=== PATIENT | female | born 1950 | race Caucasian/White ===

== ENCOUNTER 2017-06-26 08:34 | Outpatient (CLI) | payer MEDICARE | END 2017-06-26 08:35 | disposition home or self-care (01) | LOC: BICMAMMO 08:34 | PROVIDERS: ATTEND Family Medicine | DX: Z12.31 Encounter for screening mammogram for malignant neoplasm of breast (principal); R94.6 Abnormal results of thyroid function studies; E89.0 Postprocedural hypothyroidism; Z85.3 Personal history of malignant neoplasm of breast; Z85.850 Personal history of malignant neoplasm of thyroid | CPT/HCPCS: 76536; 77063; 77067 ==

== ENCOUNTER 2018-08-19 13:53 | Outpatient (CLI) | payer MEDICARE ==
--- NOTE | 2018-08-19 14:28 | MMO ---
Bilateral MAMMO Bilat Screen [facility]. CLINICAL HISTORY: Patient is 67 years old and is seen for screening. The patient has the following family history of breast cancer: maternal grandmother, (great grandmother). The patient has a history of thyroid cancer in 2003. The patient has a history of Cyst Aspiration in 2006, right Excisional Biopsy in 1993 - benign findings and right Excisional Biopsy in 1996 - benign findings. VIEWS: The views performed were: bilateral craniocaudal with tomosynthesis and bilateral mediolateral oblique with tomosynthesis. FILMS COMPARED: The present examination has been compared to prior imaging studies performed at [facility] on 05/04/2014, 05/10/2015, 05/20/2016 and 06/26/2017. MAMMOGRAM FINDINGS: There are scattered fibroglandular densities. There are no suspicious masses, suspicious calcifications, or new areas of architectural distortion. IMPRESSION: THERE IS NO MAMMOGRAPHIC EVIDENCE OF MALIGNANCY. A ROUTINE FOLLOW-UP MAMMOGRAM IN 1 YEAR IS RECOMMENDED. THE RESULTS OF THIS EXAM WERE SENT TO THE PATIENT. ACR BI-RADS Category 1 - Negative MAMMOGRAPHY NOTE: 1. A negative mammogram report should not delay a biopsy if a dominant of clinically suspicious mass is present. 2. Approximately 10% to 15% of breast cancers are not detected by mammography. 3. Adenosis and dense breasts may obscure an underlying neoplasm.
--- NOTE | 2018-08-19 16:57 | BD ---
Exam: DEXA Bone Density 08/19/18 HISTORY: Menopause. COMPARISON: None. FINDINGS: Lumbar Spine: BMD (g/cm2) T-SCORE Z-SCORE L1 0.790 -1.8 -0.1 L2 0.810 -2.0 -0.1 L3 0.819 -2.4 -0.4 L4 0.866 -1.8 0.3 L1-L4 0.833 -2.0 -0.1 Change from the comparison examination is -9.2%. There is a comparison study from 2006, although no i mages are available for review. Left Femoral Neck: 0.758 -0.8 0.8 Total Left Femur: 0.852 -0.7 0.6 Ten year fracture risk: Major osteoporotic fracture is 7.5% and hip fracture 0.6%. Impression: Osteopenia with elevated fracture risk. POS: [facility]
== END 2018-08-19 13:54 | disposition home or self-care (01) ==
LOC: BICMAMMO 13:53
PROVIDERS: ATTEND Family Medicine
DX: Z12.31 Encounter for screening mammogram for malignant neoplasm of breast (principal); N95.1 Menopausal and female climacteric states; E28.310 Symptomatic premature menopause; M85.88 Other specified disorders of bone density and structure, other site; Z80.3 Family history of malignant neoplasm of breast; Z91.89 Other specified personal risk factors, not elsewhere classified
CPT/HCPCS: 77063; 77067; 77080